=== PATIENT | female | born 1965 | race Caucasian/White ===

== ENCOUNTER 2023-03-17 15:08 | Outpatient (CLI) | payer OTHER ==
[2023-03-17 15:19] VITALS: BP 160/100
== END 2023-03-17 15:09 | disposition home or self-care (01) ==
LOC: MAC.MOP 15:08
PROVIDERS: ATTEND Physician Assistant
DX: R00.2 Palpitations (principal); R06.02 Shortness of breath
CPT/HCPCS: 93242

== ENCOUNTER 2023-03-18 13:59 | Outpatient (CLI) | payer OTHER ==
--- NOTE | 2023-03-18 16:46 | XRAY Report ---
PROCEDURE: Humerus LT INDICATIONS: FRACTURE OF SHAFT OF HUMERUS LEFT ARM TECHNIQUE: 2 views of the humerus were acquired. COMPARISON: None. FINDINGS: Bones: No fractures or dislocations. No suspicious bony lesions. ORIF of the left mid/distal corinne cheng. Soft tissues: No suspicious soft tissue calcifications or masses. IMPRESSION: Post surgical sequelae. No acute fracture. No osseous lesion. If symptoms and/or clinical suspicion f or pathology continue, further assessment with repeat plain films, or advanced imaging (e.g., CT, MRI , or bone scan) is recommended for further assessment. Reviewed by: Rohini Berman MD on 03/18/2023 4:45 PM PDT Approved by: Rohini Berman MD on 03/18/2023 4:45 PM PDT Station ID: [id number]
== END 2023-03-18 14:00 | disposition home or self-care (01) ==
LOC: LAB.N 13:59 → DI.N 14:00
PROVIDERS: ATTEND Physician Assistant
DX: M79.622 Pain in left upper arm (principal); S42.302S Unspecified fracture of shaft of humerus, left arm, sequela

== ENCOUNTER 2023-03-28 11:00 | Outpatient (CLI) | payer OTHER | END 2023-03-28 11:01 | disposition home or self-care (01) | LOC: MAC.INF 11:00 | PROVIDERS: ATTEND Physician Assistant | DX: I47.1 Supraventricular tachycardia (principal); I49.1 Atrial premature depolarization; I49.3 Ventricular premature depolarization | CPT/HCPCS: 93244 ==

== ENCOUNTER 2023-04-18 12:57 | Outpatient (CLI) | payer OTHER ==
--- NOTE | 2023-04-18 21:40 | CT Report ---
PROCEDURE: UPPER EXTREMITY WO - LT INDICATIONS: FRACTURE OF LEFT HUMERUS TECHNIQUE: Noncontrast 2 mm axial sections were acquired through the elbow joint, with coronal and sagittal refo rmats. For radiation dose reduction, the following was used: automated exposure control, adjustment of mA and/or kV according to patient size. COMPARISON: Left humeral radiograph dated 03/18/2023. FINDINGS: Image quality: Excellent. Bones: Patient is status post internal fixation of distal humeral shaft with fixation hardware exten ding to lateral epicondyles. No evidence of hardware loosening or failure is seen. Nearly healed dist al humeral shaft fracture is seen with linear sclerosis at fracture site. No acute fracture or disloc ation. No suspicious bony lesions. Soft tissues: There is no significant elbow joint effusion. No abnormal soft tissue calcifications. No full-thickness muscle or tendon rupture. IMPRESSION: 1. Prior internal fixation of distal humeral shaft with surgical hardware in place. No evidence of ryan rdware loosening or failure. 2. Healed or nearly healed oblique fracture distal humeral shaft. No acute fracture or dislocation. H umeral alignment is anatomic. No suspicious bony lesions. 3. No gross upper arm soft tissue abnormalities. Reviewed by: Tony Elizabeth MD on 04/18/2023 9:38 PM PDT Approved by: Tony Elizabeth MD on 04/18/2023 9:38 PM PDT Station ID: [id number]
== END 2023-04-18 12:58 | disposition home or self-care (01) ==
LOC: DI 12:57
PROVIDERS: ATTEND Physician Assistant
DX: S42.302D Unspecified fracture of shaft of humerus, left arm, subsequent encounter for fracture with routine healing (principal)

== ENCOUNTER 2023-05-09 13:22 | Outpatient (CLI) | payer OTHER ==
--- NOTE | 2023-05-09 21:46 | SLEEP CARE CONSULTATION ---
Information from patient questionnaire entered by Taya Aparicio. I have reviewed and concur with the information entered by Taya Aparicio. This document represents the service I personally performed and the decisions made by me, Syed Ledesma MD, [facility]. History of Present Illness Service Date and Time: 05/09/2023 1322 Reason for Visit: New patient Chief Complaint: reports: Insomnia, Snoring, Fatigue Date of Onset: 6+MONTHS Usual bedtime: 11PM Time it takes to fall asleep: VARIES Snores at night: Yes Observed to quit breathing while asleep: No Sleeps alone due to snoring: No Number of times waking at night: 1-2+ Reasons for waking at night: reports: Gasping for air, Pain, Bathroom Toss, Turn, or Twitch while sleeping: No Recalls having dreams: Yes Usually gets out of bed at: 6-9AM Feels refreshed in the morning: No Morning headache: No Sleepy or fatigued during the day: Yes Ever fallen asleep while driving: No Takes day naps: Yes Dreams during day naps: Yes Prior sleep studies: No Additional HPI information: I have the pleasure of seeing Ms. Ludwig today regarding the possibility of her having obstructive sleep apnea. As you know, she is a 57-year-old lady who complains of loud snore, insomnia, and frequent awakenings. The patient tells me that she normally goes to bed around 11 pm, and it takes her variable amount of time to fall asleep. She has been told that she snores loudly and irregularly at night. She has never been observed to stop breathing in her sleep. Her sleeps in the same bed. She can recall waking up on the average of 1 - 2 times during the night. Most of the time she wakes up because of having to use the bathroom and pain. She has awakened occasionally because shortness of breath at night. There is not a lot of tossing and turning in her sleep. She has somniloquy (sleep talking) but not somnambulism (sleep walking). Generally, she can recall having dreams. In the morning she usually gets up out of the bed around 6 - 7 a.m. not feeling refreshed nor rested. She usually does not have a morning headache. During the day she complains of feeling sleepy and fatigued. Her score on [place] Sleepiness Scale is 5 out of 24. She has never fallen asleep while driving nor has had any accident due to sleepiness. She usually takes naps during the day. Upon falling asleep during the day she denies having vivid dreams. She has never had sleep paralysis, experienced cataplexy or symptoms of restless leg syndrome. She reports having impaired concentration during the day. - Parasomnia Symptoms Ever been unable to move upon waking from sleep: No Walks in sleep: No Talks in sleep: Yes Ever acted out dreams in sleep: No Ever felt weak in the knees when startled or emotional: No Bothered by creepy, crawly, restless sensations in legs: No Problems with memory or concentration: Yes Subjective Initial [place] Sleepiness Scale score: 5 (05/09/23) Past Medical History Past Medical History: reports: Hypertension, Arthritis, Arrythmia, Anxiety, Asthma, Depression, GERD Social History The patient's occupation is a [employer]. Patient is and lives in . Have you smoked in the past 12 months: No Alcohol use: No Caffeine use: Yes Caffeine amount and frequency: 1CUP COFFEE 2 COKES 3X DAILY Family History Family history of sleep disordered breathing: Yes Family Hx Sleep Apnea: Mother: Snoring Allergies and Home Medications Known drug allergies: Yes (SEE ATTACHED) Drug allergies reviewed: Yes Home medication list reviewed: Yes Review of Systems Weight gain over past 5 years: 120 Cardiovascular: reports: high blood pressure, palpitations, irregular heart rate or pulse, leg or foot swelling, have to sleep sitting up Respiratory: reports: shortness of breath, chronic cough Gastrointestinal: reports: heartburn, difficulty swallowing, nausea, diarrhea Urinary: reports: urgency Neurological: reports: gait or balance problems Psychiatric: reports: anxiety, depression Ear/Nose/Throat: reports: nasal congestion, sinus problems, dry mouth/throat, tonsillectomy, wisdom teeth removed Endocrine: reports: thyroid disease, sluggishness, too hot or cold Musculoskeletal: reports: joint pain, neck pain, back pain, joint swelling, muscle pain or cramping, mobility problems Immunologic: reports: itching, allergies to food or environment Physical Exam Vital signs obtained and entered by: TAYA Pierson MA Blood Pressure: 132/80 (RIGHT WRIST) Cuff size: regular Heart Rate: 85 O2 Saturation: 94 Height: 5 ft 10 in Weight: 412 lb 12.8 oz Body Mass Index: 59.2 BMI Classification: Morbidly Obese Neck circumference: 16.5 Mood/affect: Normal HEENT: No craniofacial malformation Nostrils: partially obstructed Turbinates: swollen Septum: midline Mouth and throat: narrow oropharynx Soft palate: long Hard palate: normal Uvula: normal Uvula visualization: 50% Mallampati Class II Tongue: normal in size Tonsils: absent bilaterally Chin and jaw: normal size and position Neck: normal w/o lymphadenopathy or thyromegaly Heart: regular rate and rhythm, murmur Lungs: clear bilaterally Extremities: no edema or clubbing Neurologic: intact Impression and Plan IMPRESSION: 1. Obstructive Sleep Apnea-Hypopnea Syndrome, as evident by history of loud and irregular snoring, frequent awakenings during the night, unrefreshed sleep, cognitive impairment, and daytime hypersomnolence. Narrow oropharynx and obesity are common predisposing factors for obstructive sleep apnea-hypopnea syndrome. Untreated obstructive sleep apnea can also cause hypertension. I recommend proceeding to the in-laboratory polysomnography to confirm the diagnosis and to assess severity. However, because our sleep beds cannot accommodate more than 400 lbs, a home sleep apnea test (HSAT) will be ordered. Plan: 1. Schedule a home sleep apnea test (HSAT). 2. Avoid long-distance driving or when feeling sleepy. 3. Avoid alcohol, sedative and muscle relaxant around bedtime. 4. Attempt to lose weight. 5. Return for follow up after the test. Counseling Topics: Weight control Follow up with Sleep Care in: 1-2 months Visit Type: In Office Other Participants: Spouse/Significant Other Time Spent with Patient (minutes): 15 Provider Statement: I spent 100% of the Face to Face Visit with the patient with greater than 50% spent counseling the patient and coordination of care.
[2023-05-09 21:55] VITALS: BP 132/80; O2SAT 94
== END 2023-05-09 13:23 | disposition home or self-care (01) ==
LOC: SC 13:22
PROVIDERS: ATTEND Internal Medicine Pulmonary Disease
DX: G47.10 Hypersomnia, unspecified (principal); G47.8 Other sleep disorders; R06.83 Snoring; I10 Essential (primary) hypertension; F32.A Depression, unspecified; E66.01 Morbid (severe) obesity due to excess calories; Z68.43 Body mass index [BMI] 50.0-59.9, adult
CPT/HCPCS: 99202; 99212

== ENCOUNTER 2023-06-10 13:53 | Outpatient (CLI) | payer OTHER | END 2023-06-10 13:54 | disposition home or self-care (01) | LOC: SC 13:53 | PROVIDERS: ATTEND Internal Medicine Pulmonary Disease | DX: G47.33 Obstructive sleep apnea (adult) (pediatric) (principal); R09.02 Hypoxemia; E66.01 Morbid (severe) obesity due to excess calories; Z68.43 Body mass index [BMI] 50.0-59.9, adult | CPT/HCPCS: 95806 ==

== ENCOUNTER 2023-07-11 13:18 | Outpatient (CLI) | payer OTHER ==
--- NOTE | 2023-07-11 21:50 | SLEEP CARE CONSULTATION ---
Information from patient questionnaire entered by Taya Aparicio. I have reviewed and concur with the information entered by Taya Aparicio. This document represents the service I personally performed and the decisions made by me, Syed Ledesma MD, [facility]. History of Present Illness Service Date and Time: 07/11/2023 1318 Initial [place] Sleepiness Scale score: 5 (05/09/23) Current [place] Sleepiness Scale score: 6 (07/11/23) Additional HPI information: Ms. Ludwig returned for follow up of the sleep study she had on 06-11-23. The polysomnography showed that moderate obstructive sleep apnea-hypopnea with an AHI of 15.0/hr and melinda SaO2 of 73%. During the study, the patient had 19 apneas (19 obstructive, 0 central, 0 mixed) and 114 hypopneas. The longest episode lasted 113.0 seconds. The patient only slept supine during this study (supine AHI was 15.0 and non-supine, 0.00). Hypoxemia was moderate, with the lowest oxygen saturation of 73 % and 339.1 minutes with SaO2 under 90%. Baseline oxygen saturation was low (Average oxygen saturation was 89%). The patient was informed of these findings. I explained to her the pathophysiology behind obstructive sleep apnea. We then spent quite a bit of time discussing different treatment options. For mild obstructive sleep apnea, surgery and oral appliance are alternatives to nasal CPAP therapy but in moderate or severe cases, nasal CPAP is the most effective and reliable treatment. After some discussion, she opted to go with the nasal CPAP therapy. I explained to her how CPAP machine works and what to expect when using the machine. Sleep Study - Results Type of Sleep Study: Home sleep study (COMPLETED 06/11/23) Prior sleep studies: No Allergies and Home Medications Drug allergies reviewed: Yes Home medication list reviewed: Yes Allergy and home medication list: Allergies Penicillins Allergy (Severe, Verified 07/08/23 13:59) Anaphylaxis ceftriaxone Allergy (Intermediate, Verified 07/08/23 13:59) Respiratory iodine Allergy (Intermediate, Verified 07/08/23 13:59) Hives latex Allergy (Mild, Verified 07/08/23 13:59) Itching bee pollen Allergy (Verified 07/08/23 13:59) ciprofloxacin Allergy (Verified 07/08/23 13:59) shellfish derived Allergy (Verified 07/08/23 13:59) Sulfa (Sulfonamide Antibiotics) Allergy (Verified 07/08/23 13:59) sulfamethoxazole [From Sulfamethoxazole-Trimethoprim] Allergy (Verified 07/08/23 13:59) trimethoprim [From Sulfamethoxazole-Trimethoprim] Allergy (Verified 07/08/23 13:59) Review of Systems Review of systems same as previous: Yes Physical Exam Vital signs obtained and entered by: TAYA Pierson MA Blood Pressure: 128/70 (RIGHT ARM) Cuff size: wrist Heart Rate: 82 O2 Saturation: 91 Height: 5 ft 10 in Weight: 419 lb 6.4 oz Body Mass Index: 60.1 BMI Classification: Morbidly Obese Impression and Plan IMPRESSION: 1. Obstructive Sleep Apnea-Hypopnea Syndrome, moderate, with moderate hypoxemia. Most likely, this is the cause of the patients symptoms of unrefreshed sleep, and excessive daytime sleepiness. Because of her low baseline oxygen saturation, there is a good chance that she also has obesity hypoventilation and may need to use a BiPAP and oxygen therapy. The patient will be referred to [facility] in [place] because her weight exceeds out beds capacity of 400 lbs. PLAN: 1. Manual CPAP/BiPAP titration study at [facility] in [place]. 2. Attempt to lose weight. 3. Return for a follow up after the titration study. Follow up with Sleep Care in: 1-2 months Follow up recommended for: Weight management Plan: CPAP/BiPAP titration study at [facility] Visit Type: In Office Other Participants: Spouse/Significant Other Time Spent with Patient (minutes): 15 Provider Statement: I spent 100% of the Face to Face Visit with the patient with greater than 50% spent counseling the patient and coordination of care.
[2023-07-11 21:51] VITALS: BP 128/70; O2SAT 91
== END 2023-07-11 13:19 | disposition home or self-care (01) ==
LOC: SC 13:18
PROVIDERS: ATTEND Internal Medicine Pulmonary Disease
DX: G47.33 Obstructive sleep apnea (adult) (pediatric) (principal); R09.02 Hypoxemia; E66.01 Morbid (severe) obesity due to excess calories; G47.36 Sleep related hypoventilation in conditions classified elsewhere; Z68.44 Body mass index [BMI] 60.0-69.9, adult
CPT/HCPCS: 99212